=== PATIENT | male | born 1950 | race Two or more races ===

== ENCOUNTER 2025-04-15 16:41 | Inpatient (IN) | payer OTHER ==
[~2025-04-15] VITALS: Ht 165.1 cm; Wt 50.8 kg
[2025-04-15] MEDS ORDERED: GLIPIZIDE ER2.5 MG PO (16:50)
[2025-04-15] MEDS ORDERED: IMODIUM A-D2 M2 PO (16:50)
[2025-04-15] MEDS ORDERED: DIUREX MAX50 MG PO (16:51)
[2025-04-15] MEDS ORDERED: CLOPIDOGREL BIS75 MG PO (16:51)
--- NOTE | 2025-04-15 16:51 | NUR ---
SE RECIBE MASCULINO ALERT AY ORIENTADO X3 CUAL REFIERE PRESENTA EDEMA EN AMBAS PIERNAS HACE VARIOS ORTEGA. SE OBSERVA EDEMA EN AMBAS EXTREMIDADES INFERIORES POR DEBAJO DE [place].
[2025-04-15] MEDS ORDERED: 0.9 % SODIUM CHLORIDE 1,000 ML IV STA (19:11)
[2025-04-15] MEDS ORDERED: CEFTRIAXONE SODIUM 2,000 MG VIAL IV STA (19:12)
[2025-04-15] MEDS ORDERED: CEFTRIAXONE SODIUM 1,000 MG VIAL ONE (19:33)
--- NOTE | 2025-04-15 19:48 | NUR ---
SE REALIZA LAB Y SE ADMINISTRA T XSEGUN ORDEN MEDICA BAJO MEDIDAS ASEPTICAS. SE ORIENTA PTE QUIEN REFIERE ENTENDER Y ACEPTAR. SE NOTIFICA ESTUDIO PENDIENTE A SECRETARIA EN TURNO QUIEN REFIERE ENTENDER Y ACEPTAR
[2025-04-15 19:59] LABS: BASO % 0.3 % (0.1-1.2); EOS # 0.02 (0.04-0.54); EOS % 0.3 % (0.7-7.0); HEMATOCRIT 35.6 % (40.1-51.0); HEMOGLOBIN 12.1 g/dL (13.7-17.5); LYMPH # 1.25 (1.18-3.74); LYMPH % 20.2 % (19.3-53.1); MEAN CORPUSCULAR HEMOGLOBIN 31.3 pg (25.6-32.2); MONO # 0.49 (0.24-0.82); MONO % 7.9 % (4.7-12.5); NEUT # 4.38 (1.56-6.13); PLATELET COUNT 267 K/uL (163-369); RED BLOOD COUNT 3.87 M/uL (4.63-6.08)
[2025-04-15] MEDS ORDERED: ENOXAPARIN SODIUM 60 MG/0.6 ML SYRINGE SUBCUTANEO STA (20:15)
[2025-04-15 20:19] LABS: BILIRUBIN TOTAL 0.21 mg/dL (0.3-1.2); CALCIUM 8.1 mg/dL (8.5-10.1); CREATININE SERUM 0.72 mg/dL (0.70-1.30); GFR 106.14; GLOBULINA 3.9 G/DL (2.4-3.5); POTASSIUM 3.27 mEq/L (3.5-5.1); TOTAL PROTEIN 5.9 gm/dL (6.4-8.2)
[2025-04-15 20:47] LABS: ERYTHROCYTE SEDIMENTATION RATE 26 mm/hr (0-20)
[2025-04-15 21:54] LABS: PH,URINE 5.5 (5.0-8.0); URINE APPEARANCE Clear; URINE BILIRRUBIN Negative (NEGATIVE); URINE BLOOD Small; URINE COLOR Yellow; URINE GLUCOSE Negative (NEGATIVE); URINE KETONE Negative (NEGATIVE); URINE LEUKOCYTE Negative; URINE NITRATE Negative; URINE PROTEIN Negative (NEGATIVE)
[2025-04-15 21:57] LABS: URINE BACTERIA 6.1 uL (0.0-1933); URINE EPITHELIAL CELLS 5.8 uL (0.0-38.8); URINE RBC 51.2 uL (0.0-20.8); URINE WBC 5.8 uL (0.0-23.2)
[2025-04-15 22:01] LABS: URINE CAST 1.03 uL (0.0-1.40)
[2025-04-15 22:30] LABS: INR 1.1; PROTHROMBIN TIME 11.9 SECONDS (9.0-11.5)
[2025-04-15 22:45] LABS: ABG PO2 88.9 mmHg (80-100); ABG pCO2 40.9 mmHg (35-45); BASE EXCESS 3.5 mmol/l; BICARBONATE 27.8 mmol/l (23-25); SaO2 97.3 %
[2025-04-15 23:23] LABS: allen test SATISFACTORY; mode NASAL CANNULA; o2 28 %; puncture site RADIAL LEFT
--- NOTE | 2025-04-16 08:27 | NUR ---
PTE SE RECIBE PTE ALERTA Y ORIENTADO X3 EN LUIS BAJA CON BARANDAS ELEVADAS. CANALIZADO EN BRAZO KANDY CON ANGIO #20 PATENTE NYDIA DE EDEMA Y ENROJECIMIENTO. RECIBIENDO .9NSS BAJANDO A 80MLS/HR. CANULA A 3LT. PENDINTE DOPPLER Y DUPLEX.
[2025-04-16] MEDS ORDERED: ENOXAPARIN SODIUM 60 MG/0.6 ML SYRINGE SUBCUTANEO SCH (18:05)
[2025-04-16] MEDS ORDERED: 0.9 % SODIUM CHLORIDE 1,000 ML IV ONE (18:15)
[2025-04-16] MEDS ORDERED: ENOXAPARIN SODIUM 60 MG/0.6 ML SYRINGE SUBCUTANEO ONE (18:46)
[2025-04-16] MEDS ORDERED: CEFTRIAXONE SODIUM 2,000 MG in 0.9 % SODIUM CHLORIDE 100 ML IV SCH (20:03)
[2025-04-16] MEDS ORDERED: ATORVASTATIN CALCIUM 40 MG TABLET PO SCH (20:03)
[2025-04-16] MEDS ORDERED: DEXTROSE 50 % IN WATER 0.5 G/ML DISP.SYRIN IV PRN (20:15)
[2025-04-16] MEDS ORDERED: 0.9 % SODIUM CHLORIDE 1,000 ML IV SCH (20:15)
[2025-04-16] MEDS ORDERED: INSULIN LISPRO 1,000 UNIT/10 ML UNITS SUBCUTANEO PRN (20:15)
[2025-04-16] MEDS ORDERED: ACETAMINOPHEN 500 MG GEL..CAP PO PRN (20:15)
[2025-04-16] MEDS ORDERED: FUROsemide 20 MG/2 ML VIAL IV SCH (21:00)
[2025-04-17] VITALS (8 sets, daily range): BP systolic 110–129; BP diastolic 60–80; O2SAT 96–99
[2025-04-17 01:05] LABS: INR 1.1; PARTIAL THROMBOPLASTIN TIME 30.1 SECONDS (22.0-34.0); PROTHROMBIN TIME 11.9 SECONDS (9.0-11.5)
[2025-04-17] MEDS ORDERED: ENOXAPARIN SODIUM 60 MG/0.6 ML SYRINGE SUBCUTANEO SCH (05:00)
[2025-04-17] MEDS ORDERED: FAMOTIDINE/PF 20 MG in 0.9 % SODIUM CHLORIDE 8 ML IV PUSH SCH (09:00)
[2025-04-17] MEDS ORDERED: RINGERS SOLUTION,LACTATED 1,000 ML IV SCH (10:15)
[2025-04-17] MEDS ORDERED: METRONIDAZOLE/SODIUM CHLORIDE 100 ML IV SCH (17:00)
[2025-04-18] VITALS (9 sets, daily range): BP systolic 108–122; BP diastolic 67–74; O2SAT 8–98
[2025-04-18 07:10] LABS: BASO % 0.6 % (0.1-1.2); EOS # 0.06 (0.04-0.54); EOS % 1.3 % (0.7-7.0); HEMATOCRIT 30.9 % (40.1-51.0); HEMOGLOBIN 10.4 g/dL (13.7-17.5); MEAN CORPUSCULAR HEMOGLOBIN 31.2 pg (25.6-32.2); MONO # 0.42 (0.24-0.82); NEUT # 2.82 (1.56-6.13); NEUT % 60.7 % (34.0-71.1); PLATELET COUNT 264 K/uL (163-369); RED BLOOD COUNT 3.33 M/uL (4.63-6.08); RED CELL DISTRIBUTION WIDTH 13.8 % (11.6-14.4)
[2025-04-18] MEDS ORDERED: METOPROLOL SUCCINATE 25 MG TAB.SR.24H PO SCH (09:00)
[2025-04-18 12:39] LABS: ALBUMIN 1.7 gm/dL (3.4-5.0); BILIRUBIN TOTAL 0.21 mg/dL (0.3-1.2); CALCIUM 7.7 mg/dL (8.5-10.1); CREATININE SERUM 0.51 mg/dL (0.70-1.30); GFR 158.01; GLOBULINA 2.9 G/DL (2.4-3.5); PHOSPHOROUS 2.9 mg/dL (2.5-4.9); POTASSIUM 3.12 mEq/L (3.5-5.1); TOTAL PROTEIN 4.6 gm/dL (6.4-8.2)
[2025-04-18 12:51] LABS: C-REACTIVE PROTEIN 1.62 MG/DL (0.00-0.29)
[2025-04-18 12:52] LABS: MAGNESIUM 0.9 mg/dL (1.8-2.4)
[2025-04-19 00:46] VITALS: O2SAT 93
[2025-04-19 02:22] VITALS: BP 91/51; O2SAT 98
[2025-04-19 05:43] LABS: CALCIUM 7.4 mg/dL (8.5-10.1); CREATININE SERUM 0.47 mg/dL (0.70-1.30); GFR 173.63; PHOSPHOROUS 2.4 mg/dL (2.5-4.9); POTASSIUM 3.02 mEq/L (3.5-5.1)
[2025-04-19 05:57] VITALS: O2SAT 96
[2025-04-19 07:47] LABS: MAGNESIUM 0.8 mg/dL (1.8-2.4)
[2025-04-19] MEDS ORDERED: MAGNESIUM SULFATE IN WATER 50 ML IV NR (08:30)
[2025-04-19] MEDS ORDERED: FUROsemide 40 MG TABLET PO SCH (09:00)
[2025-04-19] MEDS ORDERED: SODIUM CHLORIDE 0.45 % 1,000 ML IV SCH (09:00)
[2025-04-19] MEDS ORDERED: POTASSIUM CHLORIDE IN WATER 100 ML IV SCH (09:00)
[2025-04-19] MEDS ORDERED: POTASSIUM PHOS,M-BASIC-D-BASIC 18 MM in 0.9 % SODIUM CHLORIDE 500 ML IV NR (12:00)
[2025-04-19] MEDS ORDERED: FAMOtidine 40 MG TABLET PO SCH (21:00)
[2025-04-19] MEDS ORDERED: CIPROFLOXACIN IN 5 % DEXTROSE 400 MG/200 ML PIGGYBAG IV SCH (21:00)
[2025-04-21 09:08] LABS: CA 125 25.2 U/mL (Not Estab.); CA 15-3 11.3 U/mL (0.0-25.0)
== END 2025-04-19 16:53 | disposition home or self-care (01) | DRG 301 ==
LOC: ER 16:41 → MEDJ 04-16 20:21 → MEDI 04-18 21:31
PROVIDERS: General Practice; Internal Medicine Infectious Disease; Preventive Medicine Public Health & General Preventive Medicine; ADMIT Internal Medicine; ATTEND Internal Medicine
PROC: B54DZZZ Ultrasonography of Bilateral Lower Extremity Veins (ICD-10-PCS; 2025-04-15)
PROC: B44HZZZ Ultrasonography of Bilateral Lower Extremity Arteries (ICD-10-PCS; 2025-04-15)
PROC: BQ2SYZZ Computerized Tomography (CT Scan) of Left Lower Extremity using Other Contrast (ICD-10-PCS; 2025-04-16)
PROC: 4A12X4Z Monitoring of Cardiac Electrical Activity, External Approach (ICD-10-PCS; principal; 2025-04-17)
PROC: B24BZZZ Ultrasonography of Heart with Aorta (ICD-10-PCS; 2025-04-17)
PROC: BW24ZZZ Computerized Tomography (CT Scan) of Chest and Abdomen (ICD-10-PCS; 2025-04-18)
DX: I70.235 Atherosclerosis of native arteries of right leg with ulceration of other part of foot (principal); E11.621 Type 2 diabetes mellitus with foot ulcer; L97.519 Non-pressure chronic ulcer of other part of right foot with unspecified severity; I77.1 Stricture of artery; I50.9 Heart failure, unspecified; I73.89 Other specified peripheral vascular diseases; Z79.4 Long term (current) use of insulin; B95.2 Enterococcus as the cause of diseases classified elsewhere; B96.89 Other specified bacterial agents as the cause of diseases classified elsewhere

== ENCOUNTER → 2025-04-15 | Emergency (ER) | payer OTHER ==
[~2025-04-15] MED LIST: CEFTRIAXONE SODIUM 2,000 MG VIAL ONE; CLOPIDOGREL BIS75 MG PO; DIUREX MAX50 MG PO; FUROsemide 20 MG/2 ML VIAL ONE; GLIPIZIDE ER2.5 MG PO; IMODIUM A-D2 M2 PO
== END | disposition left against medical advice (07) ==
LOC: ER 15:04
DX: Z53.21 Procedure and treatment not carried out due to patient leaving prior to being seen by health care provider (principal)

== ENCOUNTER 2025-07-23 07:00 | Day surgery (SDC) | payer OTHER ==
[2025-07-09 10:51] LABS: BASO % 1.0 % (0.1-1.2); EOS # 0.20 (0.04-0.54); EOS % 2.9 % (0.7-7.0); LYMPH # 1.31 (1.18-3.74); LYMPH % 18.8 % (19.3-53.1); MEAN PLATELET VOLUME 8.20 fl (9.4-12.4); MONO # 0.64 (0.24-0.82); MONO % 9.2 % (4.7-12.5); NEUT # 4.68 (1.56-6.13); NEUT % 67.4 % (34.0-71.1); RED CELL DISTRIBUTION WIDTH 13.2 % (11.6-14.4); URINE APPEARANCE Clear; URINE BILIRRUBIN Negative (NEGATIVE); URINE BLOOD Trace; URINE COLOR Yellow; URINE GLUCOSE Negative (NEGATIVE); URINE KETONE Negative (NEGATIVE); URINE LEUKOCYTE Negative; URINE NITRATE Negative; URINE PROTEIN Negative (NEGATIVE); URINE UROBILINOGEN 0.2 E.U./dl
[2025-07-09 10:52] VITALS: BP 137/74
[2025-07-09 10:56] LABS: URINE RBC 4.3 uL (0.0-20.8)
[2025-07-09 11:16] LABS: URINE BACTERIA 1.1 uL (0.0-1933); URINE CAST 0.14 uL (0.0-1.40); URINE EPITHELIAL CELLS 1.3 uL (0.0-38.8); URINE WBC 0.7 uL (0.0-23.2)
[2025-07-09 11:21] LABS: ALT/SGPT 15.0 U/L (12-78); AST/SGOT 16.0 U/L (15-37); BILIRUBIN TOTAL 0.21 mg/dL (0.3-1.2); BUN CREA RATIO 37.0 (7.0-25.0); CREATININE SERUM 0.52 mg/dL (0.70-1.30); GFR 154.51; GLOBULINA 4.1 G/DL (2.4-3.5); GLUCOSE FASTING 83.0 mg/dL (65-100); OSMOLALITY SERUM 286.0 MOSM/KG (275-295)
[2025-07-09 11:30] LABS: INR 1.04
[~2025-07-23] VITALS: Ht 172.7 cm; Wt 51.7 kg
[~2025-07-23 07:00] MED LIST changes: -CEFTRIAXONE SODIUM 2,000 MG VIAL ONE; +ELIQUIS; +ENALAPRIL; -FUROsemide 20 MG/2 ML VIAL ONE; +PLAVIX75 MG
[2025-07-23] MEDS ORDERED: MORPHINE SULFATE 4 MG/ML VIAL IV ONE (12:30)
== END 2025-07-23 14:20 | disposition home or self-care (01) ==
LOC: CIR.AMB 07:00
PROVIDERS: ATTEND Surgery
DX: I70.261 Atherosclerosis of native arteries of extremities with gangrene, right leg (principal); L97.516 Non-pressure chronic ulcer of other part of right foot with bone involvement without evidence of necrosis; E11.52 Type 2 diabetes mellitus with diabetic peripheral angiopathy with gangrene